=== PATIENT | female | born 1995 | race Caucasian/White ===

== ENCOUNTER 2021-02-17 08:51 | Outpatient (CLI) | payer OTHER ==
[2021-02-17] MEDS ORDERED: Iopamidol 370 76% 100 ML VIAL ONE (14:49)
== END 2021-02-17 08:52 | disposition home or self-care (01) ==
LOC: CT 08:51
PROVIDERS: ATTEND Family Medicine
DX: S09.90XD Unspecified injury of head, subsequent encounter (principal); R51.9 Headache, unspecified
CPT/HCPCS: 70470; Q9967